=== PATIENT | female | born 1970 | race Two or more races ===

== ENCOUNTER 2024-01-06 12:38 | Emergency (ER) | payer OTHER ==
[~2024-01-06] VITALS: Ht 151.1 cm; Wt 83.9 kg
[~2024-01-06 12:38] MED LIST: ABILIFY10 MG; CLONAZEPAM0.5 MG; VENLAFAXINE HCL75 MG; ZOLPIDEM TARTRA10 MG
[2024-01-06] MEDS ORDERED: COZAAR25 MG (12:49)
[2024-01-06] MEDS ORDERED: IPRATROPIUM/ALBUTEROL SULFATE 3 ML AMPUL.NEB IH ONE (14:00)
[2024-01-06] MEDS ORDERED: ACETAMINOPHEN 500 MG GEL..CAP PO ONE (14:00)
[2024-01-06] MEDS ORDERED: 0.9 % SODIUM CHLORIDE 500 ML IV ONE (14:15)
[2024-01-06 14:43] LABS: HEMATOCRIT 39.7 % (36.0-45.00); HEMOGLOBIN 13.3 g/dL (12.0-15.00); MEAN CELL VOLUME 83.1 fL (80.00-100.00); MEAN CORPUSCULAR HEMOGLOBIN 27.9 pg (27.00-32.0); MEAN CORPUSCULAR HGB CONC 33.6 g/dl (32.0-36.0); RED BLOOD COUNT 4.77 M/uL (4.00-6.00)
[2024-01-06 14:46] LABS: ABG PH 7.436 (7.35-7.45); ABG PO2 79.3 mmHg (80-100); ABG pCO2 36.1 mmHg (35-45); BASE EXCESS 0 mmol/l; BICARBONATE 23.7 mmol/l (23-25); SaO2 96.1 %; Tco2 24.8 mmol/l
[2024-01-06 14:53] LABS: CALCIUM 8.7 mg/dL (8.5-10.1); CREATININE SERUM 0.7 mg/dL (0.55-1.02); GFR 87.53; POTASSIUM 3.62 mEq/L (3.5-5.1)
[2024-01-06 14:54] LABS: allen test SATISFACTORY; o2 21 %; puncture site RADIAL RIGHT
[2024-01-06 15:11] LABS: PLATELET COUNT 106 K/uL (150-450)
[2024-01-06 17:46] LABS: HEMATOCRIT 38.8 % (36.0-45.00); HEMOGLOBIN 13.1 g/dL (12.0-15.00); MEAN CELL VOLUME 84.4 fL (80.00-100.00); MEAN CORPUSCULAR HEMOGLOBIN 28.5 pg (27.00-32.0); MEAN CORPUSCULAR HGB CONC 33.7 g/dl (32.0-36.0); RED BLOOD COUNT 4.59 M/uL (4.00-6.00); RED CELL DISTRIBUTION WIDTH 13.7 % (11.5-14.5)
[2024-01-06 18:09] LABS: PLATELET COUNT 87 K/uL (150-450)
[2024-01-06 18:19] VITALS: BP 120/80; O2SAT 97
== END 2024-01-06 18:20 | disposition home or self-care (01) ==
LOC: ER 12:39
PROVIDERS: General Practice
DX: B34.9 Viral infection, unspecified (principal); R50.9 Fever, unspecified; Z88.6 Allergy status to analgesic agent; A90 Dengue fever [classical dengue]; Z20.822 Contact with and (suspected) exposure to COVID-19

== ENCOUNTER 2024-01-15 11:15 | Emergency (ER) | payer OTHER ==
[~2024-01-15] VITALS: Ht 149.9 cm; Wt 83.9 kg
[~2024-01-15 11:15] MED LIST changes: +COZAAR25 MG
[2024-01-15] MEDS ORDERED: BENZONATATE 100 MG CAPSULE PO ONE (11:30)
[2024-01-15] MEDS ORDERED: LEVALBUTEROL HCL 1.25 MG/3 ML SOLUTION IH ONE (11:30)
[2024-01-15] MEDS ORDERED: IPRATROPIUM BROMIDE 0.5 MG/2.5 ML AMPUL.NEB IH ONE (11:30)
[2024-01-15] MEDS ORDERED: METHYLPREDNISOLONE SOD SUCC 40 MG VIAL IM ONE (11:30)
[2024-01-15 12:37] LABS: HEMATOCRIT 42.2 % (36.0-45.00); MEAN CORPUSCULAR HGB CONC 33.3 g/dl (32.0-36.0); PLATELET COUNT 388 K/uL (150-450); RED BLOOD COUNT 5.02 M/uL (4.00-6.00); RED CELL DISTRIBUTION WIDTH 14.3 % (11.5-14.5)
[2024-01-15] MEDS ORDERED: LEVALBUTER0.63 MG/3 IH (12:50)
[2024-01-15] MEDS ORDERED: BENZONATATE200 M1 PO (12:50)
[2024-01-15] MEDS ORDERED: MONTELUKAST SODI4 M1 PO (12:54)
== END 2024-01-15 13:32 | disposition home or self-care (01) ==
LOC: ER 11:16
PROVIDERS: General Practice
DX: R53.81 Other malaise (principal); J45.909 Unspecified asthma, uncomplicated; I10 Essential (primary) hypertension; Z88.6 Allergy status to analgesic agent